=== PATIENT | female | born 1990 | race Caucasian/White ===

== ENCOUNTER 2017-01-25 03:46 | Observation (INO) | payer MEDICAID ==
[2017-01-25] MEDS ORDERED: hydrOXYzine HCl 50 MG/ML SDV IM ONE (04:06)
[2017-01-25] MEDS ORDERED: Ketorolac 60 MG/2 ML SDV IM ONE (04:06)
[2017-01-25] MEDS ORDERED: cefTRIAXone 500 MG Vial IVPUSH ONE (06:26)
[2017-01-25] MEDS ORDERED: Morphine 2 MG/ML Syringe IVPUSH ONE (06:27)
[2017-01-25] MEDS: Sodium Chloride 0.9% 1,000 ML IV SCH ×2 (06:30→15:09)
--- NOTE | 2017-01-25 07:11 | ER ---
DATE SEEN: 01/25/2017 CHIEF COMPLAINT: Abdominal pain. HISTORY OF PRESENT ILLNESS: This is a 27-year-old female with abdominal pain, epigastrium area, started last night. Thought it was anxiety, tried some Tums with no improvement. It is associated with vomiting and it is moderate-to- severe, does not radiate to anywhere. REVIEW OF SYSTEMS: Denies any fever. No constipation or urinary symptoms. ALLERGIES: Metronidazole. MEDICATIONS: Reviewed. PHYSICAL EXAMINATION: GENERAL: She is not in distress. VITAL SIGNS: Blood pressure initially 120/76, pulse is 84. ABDOMEN: Soft with exquisite tenderness to palpation of the epigastrium and right upper quadrant. No rebound or rigidity was noted. Bowel sounds are present. Sharma sign was positive. LABORATORY DATA: White cell count is normal. No left shift. ALT and AST 379 and 406 respectively. Ultrasound showed gallstone and thickened fuller. IMPRESSION: Acute gallbladder disease. PLAN: Initially give her Vistaril and IM ketorolac. Symptoms only marginally improved. I started her on 1 L of normal saline. I gave her one dose of Rocephin and morphine, and consulted with Dr. Su. /[id number] JOSE MIGUEL/CHERIE
[2017-01-25] MEDS ORDERED: LORazepam 2 MG/ML MDV IV PRN (08:31)
[2017-01-25] MEDS ORDERED: Ondansetron 4 MG/2 ML SDV IV PRN (08:31)
--- NOTE | 2017-01-25 10:32 | PCM.HP ---
H&P History of Present Illness - General Date of Service: 01/25/17 Admit Problem/Dx: Admission Diagnosis/Problem Admission Diagnosis/Problem Cholelithiasis Source of Information: Patient History Limitations: Reports: No Limitations - History of Present Illness Initial Comments - Free Text/Narative: Pt presented to the ED in the early am with a complaint of abd pain. she initially thought it was related to her anxiety however her usual efforts to handle this were not successful. On presentation to the ED noted to have a normal WBC, however her lft's were all elevated. US demonstrated thickened gall bladder wall with a large 2 cm stone. CBD was slightly dilated, no stone noted. formal report is pending. Has noted some dark urine otherwise no signs of obstruction. No acholic stools. Pain was better when I saw her. upper abdomen Pain Score (Numeric/FACES): 1 - Related Data Allergies/Adverse Reactions: Allergies Allergy/AdvReac Type Severity Reaction Status Date / Time metronidazole [From Flagyl] Allergy Hives Verified 01/25/17 03:59 Home Medications: Home Meds ALPRAZolam [Xanax] 1 mg PO QID PRN #2 tablet 07/20/13 [Rx] Past Medical History Other HEENT History: lip laceration [employer] History: Reports: : 2 Para: 2 Psychiatric History: Reports: Anxiety - Infectious Disease History Infectious Disease History: Reports: Chicken Pox - Past Surgical History HEENT Surgical History: Reports: Oral Surgery Social & Family History - Family History Family Medical History: Noncontributory - Tobacco Use Smoking Status *Q: Current Every Day Smoker Years of Tobacco use: 16 Packs/Tins Daily: 1.5 Used Tobacco, but Quit: No Second Hand Smoke Exposure: Yes - Caffeine Use Caffeine Use: Reports: Coffee, Soda Other Caffeine Use: 6 cups of coffee, 4-5 sodas - Alcohol Use Days Per Week of Alcohol Use: 7 Number of Drinks Per Day: 1 Total Drinks Per Week: 7 - Recreational Drug Use Recreational Drug Use: No H&P Review of Systems - Review of Systems: Review Of Systems: See Below General: Denies: Fever, Chills HEENT: Reports: No Symptoms Pulmonary: Reports: No Symptoms Cardiovascular: Reports: No Symptoms Gastrointestinal: Reports: Abdominal Pain, Nausea Genitourinary: Reports: No Symptoms Musculoskeletal: Reports: Back Pain Skin: Reports: No Symptoms Exam - Exam Exam: See Below - Vital Signs Vital Signs: Last Vital Signs Temp 36.3 C 01/25/17 08:31 Pulse 62 01/25/17 08:31 Resp 16 01/25/17 08:31 BP 95/62 01/25/17 08:31 Pulse Ox 100 01/25/17 08:31 Weight: 58.06 kg - Exam General: Alert, Oriented HEENT: PERRLA, Conjunctiva Clear, EOMI, Hearing Intact, Mucosa Moist & [place] Neck: Supple Lungs: Clear to Auscultation GI/Abdominal Exam: Normal Bowel Sounds, Soft, Non-Tender - Patient Data Result Diagrams: 01/25/17 04:10 01/25/17 04:10 *Q Meaningful Use (ADM) - VTE *Q VTE Criteria *Q: - Stroke *Q Stroke Criteria *Q: - AMI *Q AMI Criteria *Q: - Problem List (1) Cholelithiasis SNOMED Code(s): 379594743 ICD Code: K80.20 - CALCULUS OF GALLBLADDER W/O CHOLECYSTITIS W/O OBSTRUCTION Status: Acute Current Visit: Yes Qualifiers: Cholelithiasis location: gallbladder Cholecystitis presence: without cholecystitis Biliary obstruction: without biliary obstruction Qualified Code(s): K80.20 - Calculus of gallbladder without cholecystitis without obstruction Problem List Initiated/Reviewed/Updated: Yes Orders Last 24hrs: Active Orders 24 hr Category Date Time Status Patient Status [ADT] Routine ADT 01/25/17 08:31 Active Notify Provider Vital Signs [RC] ASDIRECTED Care 01/25/17 08:31 Active Oxygen Therapy [RC] PRN Care 01/25/17 08:31 Active VTE/DVT Education [RC] Per Unit Routine Care 01/25/17 08:31 Active Vital Signs [RC] Q4H Care 01/25/17 08:31 Active Nothing per Oral Now Diet [DIET] Diet 01/25/17 Breakfast Ordered CBC WITH AUTO DIFF [HEME] AM Lab 01/26/17 05:11 Ordered COMPREHENSIVE METABOLIC PN,CMP [CHEM] AM Lab 01/26/17 05:11 Ordered HEPATITIS PANEL,ACUTE [REF] Routine Lab 01/25/17 04:10 Received LORazepam [Ativan] Med 01/25/17 08:31 Active 1 mg IV Q6H PRN Lactated Ringers [Ringers, Lactated] 1,000 ml Med 01/25/17 08:45 Active IV ASDIRECTED Morphine Med 01/25/17 08:31 Active 2 mg IVPUSH Q2H PRN Ondansetron [Zofran] Med 01/25/17 08:31 Active 4 mg IV Q6H PRN Resuscitation Status Routine Resus Stat 01/25/17 08:31 Ordered Medication Orders Sodium Chloride (Normal Saline) 1,000 mls @ 125 mls/hr IV ASDIRECTED MIGUEL Last Admin: 01/25/17 06:30 Dose: 125 mls/hr Lactated Ringer's (Ringers, Lactated) 1,000 mls @ 125 mls/hr IV ASDIRECTED [facility]IGU[facility] Lorazepam (Ativan) 1 mg IV Q6H PRN PRN Reason: Anxiety Morphine Sulfate (Morphine) 2 mg IVPUSH Q2H PRN PRN Reason: Pain (severe 7-10) Ondansetron HCl (Zofran) 4 mg IV Q6H PRN PRN Reason: Nausea/Vomiting Assessment/Plan Comment:: will admit to track her bili as we are unable to obtain a MRCP. If drops will plan lap narcisa. It it rises will need transfer to [facility] for further newman of common duct stone.
[2017-01-25] MEDS: Morphine 2 MG/ML Syringe IVPUSH PRN ×2 (15:25→17:53)
[2017-01-25] MEDS: Lactated Ringers 1,000 ML IV SCH (23:37)
--- NOTE | 2017-01-26 08:46 | PCM.SURGPN ---
- General Info Date of Service: 01/26/17 - Review of Systems Gastrointestinal: Reports: Abdominal Pain (conitnues to have RUQ abd pain. LFt' s are up but bilirubin is down. ) - Patient Data Vitals - Most Recent: Last Vital Signs Temp 36.6 C 01/26/17 05:00 Pulse 52 L 01/26/17 05:00 Resp 16 01/26/17 05:00 BP 105/63 01/26/17 05:00 Pulse Ox 99 01/26/17 05:00 Weight - Most Recent: 59.783 kg I&O - Last 24 Hours: Intake & Output 01/25/17 01/26/17 01/26/17 22:59 06:59 14:59 Intake Total 1915 1064 Output Total 600 400 400 Balance 1315 664 -400 Lab Results Last 24 Hrs: Laboratory Results - last 24 hr 01/26/17 01/26/17 Range/Units 06:00 06:00 WBC 5.3 (4.5-12.0) X10-3/uL RBC 4.05 (3.23-5.20) x10(6)uL Hgb 12.2 (11.5-15.5) g/dL Hct 36.2 (30.0-51.3) % MCV 89.5 (80-96) fL MCH 30.1 (27.7-33.6) pg MCHC 33.7 (32.2-35.4) g/dL RDW 12.3 (11.5-15.5) % Plt Count 167 (125-369) X10(3)uL MPV 8.5 (7.4-10.4) fL Neut % (Auto) 46.0 (46-82) % Lymph % (Auto) 43.7 H (13-37) % [place] % (Auto) 7.2 (4-12) % Eos % (Auto) 2 (1.0-5.0) % Baso % (Auto) 1 (0-2) % Neut # (Auto) 2.4 (1.6-8.3) # Lymph # (Auto) 2.3 (0.6-5.0) # [place] # (Auto) 0.4 (0.0-1.3) # Eos # (Auto) 0.1 (0.0-0.8) # Baso # (Auto) 0.1 (0.0-0.2) # Sodium 142 (135-145) mmol/L Potassium 3.8 (3.5-5.3) mmol/L Chloride 111 H D (100-110) mmol/L Carbon Dioxide 24 (23-29) mmol/L BUN 8 (5-20) mg/dL Creatinine 0.7 (0.6-1.3) mg/dL Est Cr Clr Drug Dosing 108.69 mL/min Estimated GFR (MDRD) > 60 (>60) BUN/Creatinine Ratio 11.4 (9-20) Glucose 69 L (80-116) mg/dL Calcium 8.7 (8.6-10.2) mg/dL Total Bilirubin 1.2 (0.1-1.3) mg/dL AST 217 H D (5-27) IU/L ALT 462 H D (14-26) IU/L Alkaline Phosphatase 141 H (56-112) IU/L Total Protein 5.7 L (6.0-8.0) g/dL Albumin 3.5 (3.5-5.2) g/dL Globulin 2.2 g/dL Albumin/Globulin Ratio 1.6 Med Orders - Current: Current Medications Sodium Chloride (Normal Saline) 1,000 mls @ 125 mls/hr IV ASDIRECTED [facility] Last Admin: 01/25/17 15:09 Dose: 125 mls/hr Lactated Ringer's (Ringers, Lactated) 1,000 mls @ 125 mls/hr IV ASDIRECTED [facility] Last Admin: 01/25/17 23:37 Dose: 125 mls/hr Cefoxitin Sodium 1 gm/ Sodium (Chloride) 50 mls @ 100 mls/hr IV Q8H [facility] Last Admin: 01/26/17 04:09 Dose: 100 mls/hr Lorazepam (Ativan) 1 mg IV Q6H PRN PRN Reason: Anxiety Morphine Sulfate (Morphine) 2 mg IVPUSH Q2H PRN PRN Reason: Pain (severe 7-10) Last Admin: 01/25/17 17:53 Dose: 2 mg Ondansetron HCl (Zofran) 4 mg IV Q6H PRN PRN Reason: Nausea/Vomiting Last Admin: 01/25/17 11:54 Dose: 4 mg Discontinued Medications Ceftriaxone Sodium (Rocephin) 1,000 mg IVPUSH ONETIME ONE Stop: 01/25/17 06:27 Last Admin: 01/25/17 06:36 Dose: 1,000 mg Hydroxyzine HCl (Vistaril) 50 mg IM ONETIME ONE Stop: 01/25/17 04:07 Last Admin: 01/25/17 04:15 Dose: 50 mg Ketorolac Tromethamine (Toradol) 60 mg IM ONETIME ONE Stop: 01/25/17 04:07 Last Admin: 01/25/17 04:20 Dose: 60 mg Morphine Sulfate (Morphine) 2 mg IVPUSH ONETIME ONE Stop: 01/25/17 06:28 Last Admin: 01/25/17 06:33 Dose: 2 mg - Exam General: Alert, Oriented Lungs: Clear to Auscultation, Normal Respiratory Effort Cardiovascular: Regular Rate, Regular Rhythm GI/Abdominal Exam: Normal Bowel Sounds, Soft, Tender (ruq ). No: Guarding, Rebound - Problem List & Annotations (1) Cholelithiasis SNOMED Code(s): 719289159 Code(s): K80.20 - CALCULUS OF GALLBLADDER W/O CHOLECYSTITIS W/O OBSTRUCTION Status: Acute Current Visit: Yes Qualifiers: Cholelithiasis location: gallbladder Cholecystitis presence: without cholecystitis Biliary obstruction: without biliary obstruction Qualified Code(s): K80.20 - Calculus of gallbladder without cholecystitis without obstruction - Problem List Review Problem List Initiated/Reviewed/Updated: Yes - My Orders Last 24 Hours: Active Orders 24 hr Category Date Time Status Patient Status [ADT] Routine ADT 01/25/17 08:31 Active Notify Provider Vital Signs [RC] ASDIRECTED Care 01/25/17 08:31 Active Oxygen Therapy [RC] PRN Care 01/25/17 08:31 Active Patient to Empty Bladder [RC] ASDIRECTED Care 01/26/17 08:42 Ordered VTE/DVT Education [RC] Per Unit Routine Care 01/25/17 08:31 Active Verify Patient Consent Obtain [RC] ASDIRECTED Care 01/26/17 08:40 Ordered Vital Signs [RC] Q4H Care 01/25/17 08:31 Active LORazepam [Ativan] Med 01/25/17 08:31 Active 1 mg IV Q6H PRN Lactated Ringers [Ringers, Lactated] 1,000 ml Med 01/25/17 08:45 Active IV ASDIRECTED Morphine Med 01/25/17 08:31 Active 2 mg IVPUSH Q2H PRN Ondansetron [Zofran] Med 01/25/17 08:31 Active 4 mg IV Q6H PRN cefOXitin [Mefoxin] 1 gm Med 01/25/17 11:00 Active Sodium Chloride 0.9% [Normal Saline] 50 ml IV Q8H SCD [Sequential Compression Device] [OM.PC] Routine Oth 01/26/17 08:41 Ordered Resuscitation Status Routine Resus Stat 01/25/17 08:31 Ordered Medication Orders Sodium Chloride (Normal Saline) 1,000 mls @ 125 mls/hr IV ASDIRECTED [facility] Last Admin: 01/25/17 15:09 Dose: 125 mls/hr Infusion: 01/25/17 14:30 Dose: 125 mls/hr Admin: 01/25/17 06:30 Dose: 125 mls/hr Lactated Ringer's (Ringers, Lactated) 1,000 mls @ 125 mls/hr IV ASDIRECTED [facility] Last Admin: 01/25/17 23:37 Dose: 125 mls/hr Cefoxitin Sodium 1 gm/ Sodium (Chloride) 50 mls @ 100 mls/hr IV Q8H [facility] Last Admin: 01/26/17 04:09 Dose: 100 mls/hr Admin: 01/25/17 18:24 Dose: 100 mls/hr Admin: 01/25/17 11:27 Dose: 100 mls/hr Lorazepam (Ativan) 1 mg IV Q6H PRN PRN Reason: Anxiety Morphine Sulfate (Morphine) 2 mg IVPUSH Q2H PRN PRN Reason: Pain (severe 7-10) Last Admin: 01/25/17 17:53 Dose: 2 mg Admin: 01/25/17 15:25 Dose: 2 mg Ondansetron HCl (Zofran) 4 mg IV Q6H PRN PRN Reason: Nausea/Vomiting Last Admin: 01/25/17 11:54 Dose: 4 mg - Assessment Assessment (Free Text/Narrative):: still with pain. w - Plan Plan (Free Text/Narrative):: lap cholecystectomy with IOC. procedure and risks were explained to the pt to include bleeding infection injury to the common bile duct, liver blood vessel and bowel. Need to convert to open was also discussed. she expressed understanding and asks us to proceed.
[2017-01-26] MEDS ORDERED: Lidocaine 2% 100 MG/5 ML Syringe IVPUSH ONE (09:30)
[2017-01-26] MEDS ORDERED: Midazolam 1 MG/ML 2 ML SDV IV ONE (09:30)
[2017-01-26] MEDS ORDERED: HYDROmorphone 2 MG/ML SDV IV ONE (09:30)
[2017-01-26] MEDS ORDERED: Ketorolac 30 MG/ML SDV IVPUSH ONE (09:30)
[2017-01-26] MEDS ORDERED: Propofol 200 MG/20 ML SDV IV ONE (09:30)
[2017-01-26] MEDS ORDERED: Lactated Ringers 1,000 ML IV ONE (09:30)
[2017-01-26] MEDS ORDERED: Glycopyrrolate 0.2 MG/ML 5 ML MDV IV ONE (09:30)
[2017-01-26] MEDS ORDERED: Rocuronium 50 MG/5 ML Vial IV ONE (09:30)
[2017-01-26] MEDS ORDERED: Ondansetron 4 MG/2 ML SDV IVPUSH ONE (09:30)
[2017-01-26] MEDS ORDERED: Dexamethasone 4 MG/ML 5 ML MDV IVPUSH ONE (09:30)
[2017-01-26] MEDS ORDERED: fentaNYL 100 MCG/2 ML SDV IV ONE (09:30)
[2017-01-26] MEDS ORDERED: Neostigmine Methylsulfate 10 MG/10 ML MDV IVPUSH ONE (09:30)
[2017-01-26] MEDS ORDERED: Bupivacaine 0.5% 30 ML SDV INJECT ONE (09:52)
[2017-01-26] MEDS ORDERED: Lidocaine 1% with EPINEPHrine 1:100,000 20 ML MDV INJECT ONE (09:52)
--- NOTE | 2017-01-26 10:42 | PCM.OPNOTE ---
- General Post-Op/Procedure Note Date of Surgery/Procedure: 01/26/17 Operative Procedure(s): lap narcisa with ioc Findings: choledocholithiasis cholelithiasis Pre Op Diagnosis: cholelithiasis Post-Op Diagnosis: choledocholithiasis. cholelithiasis Anesthesia Technique: General ET Tube, Local (9 ml 1 % lido with epi/0.5% buvipicaine) Primary Surgeon: Bill Su Anesthesia Provider: Zenia Sauceda Pathology: gallbladder and contents Complications: None Condition: Good Free Text/Narrative:: Intake & Output 01/25/17 01/26/17 01/26/17 22:59 06:59 14:59 Intake Total 1915 1064 Output Total 600 400 400 Balance 1315 664 -400 see dictation
--- NOTE | 2017-01-26 11:41 | PCM.SN ---
- Free Text/Narrative Note: call placed to [facility] in [place]. will be transferred for a ERCP when a bed is available.
[2017-01-26] MEDS: Lactated Ringers 1,000 ML IV SCH (11:57)
[2017-01-26] MEDS: Morphine 2 MG/ML Syringe IVPUSH PRN (12:09)
[2017-01-26 13:51] VITALS: BP 114/70
--- NOTE | 2017-01-28 09:58 | OR ---
DATE OF OPERATION: 01/26/2017 SURGEON: Bill Su MD PROCEDURE PERFORMED: Laparoscopic cholecystectomy with intraoperative cholangiogram. PREOPERATIVE DIAGNOSIS: Cholelithiasis. POSTOPERATIVE DIAGNOSES: Cholelithiasis and choledocholithiasis. INDICATIONS FOR PROCEDURE: This is a 27-year-old white female, who presented to the emergency department yesterday with a 2-day history of abdominal pain located in the right upper quadrant. She was noted to have an elevation in transaminases as well as a slight elevation in her bilirubin. Subsequent ultrasound demonstrated a dilated common bile duct with no evidence of a retained stone and she was noted to have a 2-cm stone in her gallbladder. She was admitted for observation. Bilirubin was noted to return to normal and because of some persistent right upper quadrant abdominal discomfort, she was offered and accepted a lap cholecystectomy with intraoperative cholangiogram. DESCRIPTION OF OPERATION: After an excellent general anesthetic was administered, the patient was prepped and draped in the usual sterile manner. A 1:1 mixture of 1% lidocaine with epinephrine and 0.5% bupivacaine was used to infiltrate the area just below the umbilicus. A vertical midline incision was then made. Blunt dissection was carried out exposing the midline fascia. Two stay sutures of 0 Vicryl were placed on either side of the fascia, which was then incised, and elevated. A 10.5 mm Oma trocar was inserted into the patient's abdomen which was then insufflated to 15 mmHg using carbon dioxide. Under direct visualization, three 5-mm ports were placed, one in the midline epigastrium and 2 below the right costal margin at the level of the midclavicular and anterior axillary lines. The gallbladder was grasped and retracted in a cephalad fashion. The infundibulum was grasped, and blunt dissection was carried out dissecting free enlarged cystic duct as well as cystic artery. After obtaining a critical view, a clip was placed distally on the cystic duct just before the infundibulum. Using an Angiocath, a biliary cholangiocath was then inserted through the anterior abdominal wall. A small isacc was made in the cystic duct and the cholangiocath was then inserted into the cystic duct and clipped into position. Under fluoroscopic examination, the patient was noted to have a dilated common bile duct as well as the biliary tree. She does appear to have a stone jammed down in the level of the ampulla with no flow of dye into the duodenum. Catheter was then removed. Three clips were placed proximally on the cystic duct prior to our partial transection and this transection was then carried out through the cystic duct. Two clips were applied on the cystic artery and one distally, and this was transected as well and the gallbladder was then dissected free from the gallbladder fossa using electrocautery. The specimen was passed into a bag and delivered out through the umbilicus. The area was irrigated until clear. After ensuring excellent hemostasis, the trocars were removed under direct visualization. Pneumoperitoneum was released. The umbilical port was closed with a figure-of- eight 0 Vicryl. The skin was closed using running subcu 4-0 Vicryl. Needle, sponge, and instrument counts were reported as correct. We used a total of 9 mL of 1% lidocaine with epinephrine and 0.5% bupivacaine and we used [id number]-370 undiluted for our contrast dye. /[id number] /MODL
== END 2017-01-26 12:15 ==
LOC: FB.ED 03:46 → FB.MS 08:29 → UNDOADMOB 08:46
PROVIDERS: ADMIT Surgery; ATTEND Surgery
DX: R10.11 Right upper quadrant pain (principal)
CPT/HCPCS: 36415; 47563; 76000; 76705; 80053; 80074; 81001; 81025; 82150; 82247; 82248; 85025; 88304; 94150; 96361; 96365; 96366; 96372; 96375; 96376; 99284; G0378; J0694; J0696; J1100; J1170; J1885; J2250; J2270; J2405; J2704; J2710; J3010; J3410; J7040; J7050; J7120; 96374